=== PATIENT | male | born 1950 | race Caucasian/White ===

== ENCOUNTER 2018-09-03 07:31 | Emergency (ER) | payer MEDICARE ==
--- NOTE | 2018-09-03 08:19 | EDM.PDOC ---
ED HPI GENERAL MEDICAL PROBLEM - General Chief Complaint: CPR in Progress Stated Complaint: [facility] Time Seen by Provider: 09/03/18 07:39 Source of Information: Reports: EMS, [facility] Records, RN Notes Reviewed - History of Present Illness INITIAL COMMENTS - FREE TEXT/NARRATIVE: 68-year-old male has been brought to the ED by [facility] having suffered cardiac arrest this morning. He has been a resident at [facility] for about the last 4-5 years. [facility] staff found him in bed this morning unresponsive at around 6:20 AM. He still had some agonal breathing at that time but no response to verbal. [facility] was called to the scene and they did immediately call for intercept with [facility]. The call went out to [facility] at 6:22 AM, [facility] arrived at the scene at 6:44 AM. CPR was in progress at that time. When they did get him hooked to equipment monitor phototypesetting they did find that he had some agonal heart activity, low voltage with a rate of about 20-25. They did give atropine 1 mg IV, epinephrine 1 mg IV. CPR was continued. He was intubated. After the above meds he went into V fibrillation. They did defibrillate once and rhythm went to asystole. CPR was continued. He remained in asystole. They did call me for advice at about 7:08 and resuscitative efforts were stopped at that time. - Related Data Allergies Allergy/AdvReac Type Severity Reaction Status Date / Time chlorpheniramine Allergy Unknown Cannot Verified 02/17/16 10:27 Remember clindamycin Allergy Unknown Cannot Verified 02/17/16 10:27 Remember dextromethorphan Allergy Unknown Cannot Verified 02/17/16 10:27 Remember diphenhydramine Allergy Unknown Cannot Verified 02/17/16 10:27 Remember phenylephrine Allergy Unknown Cannot Verified 02/17/16 10:27 Remember Home Meds: Home Meds Aspirin [Halfprin] 81 mg PO DAILY 03/27/15 [History] Furosemide [Lasix] 40 mg PO BID 03/27/15 [History] Levothyroxine Sodium [Levoxyl] 50 mcg PO DAILY 03/27/15 [History] Magnesium Oxide 400 mg PO BID 03/27/15 [History] Multivitamin [Daily Multiple Vitamin] 1 tab PO DAILY 03/27/15 [History] Potassium Chloride [Klor-Con] 20 meq PO DAILY 03/27/15 [History] Tamsulosin [Flomax] 0.4 mg PO BID 03/27/15 [History] Cholecalciferol (Vitamin D3) [Vitamin D3] 1,000 unit PO DAILY 03/31/15 [History] Enalapril [Vasotec] 5 mg PO DAILY 05/30/15 [History] Sertraline [Zoloft] 50 mg PO DAILY 05/30/15 [History] Iron Polysaccharides Complex [Ferrex 150] 300 mg PO TID #30 cap 06/09/15 [Rx] Saccharomyces Boulardii [Florastor] 250 mg PO BID #60 cap 06/09/15 [Rx] Finasteride 5 mg PO DAILY 02/17/16 [History] Fluticasone Propionate [Flonase Allergy Relief] 2 sprays NASBOTH DAILY 02/17/16 [History] Gabapentin [Neurontin] 600 mg PO BID 02/17/16 [History] Insulin Aspart [Novolog Flexpen] 26 units SQ TIDMEALS 02/17/16 [History] Insulin Glarg,Human.Rec.Analog [LantUS Solostar] 36 units SQ BEDTIME 02/17/16 [ History] Levofloxacin [Levaquin] 500 mg PO Q24H 02/17/16 [History] Liraglutide [Victoza] 0.6 mg SQ DAILY 02/17/16 [History] Omeprazole 20 mg PO ACBREAKFAST 02/17/16 [History] Sulfamethoxazole/Trimethoprim [Bactrim Ds Tablet] 1 tab PO BID 02/17/16 [History ] atorvaSTATin [Lipitor] 10 mg PO BEDTIME 02/17/16 [History] fentaNYL [Duragesic] 75 mcg TRDERM Q72H 02/17/16 [History] guaiFENesin [Guaifenesin ER] 600 mg PO BID 02/17/16 [History] Atropine/Diphenoxylate [Lomotil 0.025-2.5 MG] 2 tab PO QID PRN #10 tablet [Rx] Mesalamine [Asacol] 800 mg PO TID #90 tablet 02/24/16 [Rx] metroNIDAZOLE [Flagyl] 500 mg PO Q8H #15 tablet 02/24/16 [Rx] Past Medical History HEENT History: Reports: Allergic Rhinitis, Sinusitis Cardiovascular History: Reports: High Cholesterol, Hypertension, PVD, SOB on Exertion, Other (See Below) Other Cardiovascular History: PVD. hypokalemia. edema Respiratory History: Reports: Sleep Apnea, SOB Gastrointestinal History: Reports: Chronic Constipation, GERD Genitourinary History: Reports: Diabetic Nephropathy, UTI, Recurrent Musculoskeletal History: Reports: Arthritis, Back Pain, Chronic, Osteoarthritis , Other (See Below) Other Musculoskeletal History: pyogenic arthritis, muscle weakness, dorsalgia Neurological History: Reports: Neuropathy, Diabetic, Neuropathy, Peripheral, Other (See Below) Other Neuro History: mild cognitive impairment Psychiatric History: Reports: Depression, Other (See Below) Other Psychiatric History: mild cognitive impairment Endocrine/Metabolic History: Reports: Diabetes, Type II, Hypothyroidism, Obesity /BMI 30+ Hematologic History: Reports: Blood Transfusion(s) Immunologic History: Reports: Other (See Below) Other Immunologic History: hepatitis chronic viral Oncologic (Cancer) History: Reports: Colon Dermatologic History: Reports: Cellulitis - Infectious Disease History Infectious Disease History: Reports: Chicken Pox, Hepatitis C, Measles, MRSA, Mumps - Past Surgical History Musculoskeletal Surgical History: Reports: Arthroscopic Knee, Shoulder Replacement Social & Family History - Family History Family Medical History: Noncontributory - Living Situation & Occupation Living situation: Reports: Single Occupation: Disabled ED ROS GENERAL - Review of Systems Review Of Systems: Unable To Obtain ED EXAM, CPR - Physical Exam Exam: See Below General Appearance: Other (unresponsive, not breathing, no CPR on arrival to ED) Eye Exam: Bilateral Eye: Other (pupils are dilated, nonreactive) Ears: Normal External Exam Nose: Normal Inspection Throat/Mouth: Other (patient has been intubated, endotracheal tube in place) Head: Atraumatic Respiratory Chest: Other (not breathing, no breath sounds) Cardiovascular: Other (no heart tones) Skin Exam: Pallor Comments: no visible bruising Course - Re-Assessments/Exams Free Text/Narrative Re-Assessment/Exam: 09/03/18 07:55. We did hook him to our equipment monitor phototypesetting on arrival to ED. patient monitor showed asystole. I did visit with family, a daughter, her and son have arrived. Talia from pastoral care also is with them. They also are not aware that he has been having recent health problem, chest pain, or other unusual symptoms. I did discuss this with Dr. Hawk, developing machine tender on-call. Time of stated is 07:08 after he had gone into prolonged asytole. It is most likely that he has suffered acute [place] with Cardiac Arrythmia. Departure - Departure Time of Disposition: 07:25 Disposition: Clinical Impression: Cardiac arrest Myocardial infarction Qualifiers: Myocardial infarction type: unspecified Involved coronary artery: unspecified coronary artery Qualified Code(s): I21.9 - Acute myocardial infarction, unspecified - Discharge Information Referrals: Santino Cooper MD [Primary Care Provider] - Forms: ED Department Discharge
== END 2018-09-03 09:09 | disposition expired ==
LOC: JD.ED 07:31
DX: I46.9 Cardiac arrest, cause unspecified (principal); I21.9 Acute myocardial infarction, unspecified; E11.21 Type 2 diabetes mellitus with diabetic nephropathy; I10 Essential (primary) hypertension; E78.00 Pure hypercholesterolemia, unspecified; K21.9 Gastro-esophageal reflux disease without esophagitis; E03.9 Hypothyroidism, unspecified; Z79.4 Long term (current) use of insulin; Z79.82 Long term (current) use of aspirin; Z79.899 Other long term (current) drug therapy; Z88.8 Allergy status to other drugs, medicaments and biological substances; Z88.1 Allergy status to other antibiotic agents
CPT/HCPCS: 99283; 99285